=== PATIENT | male | born 1965 | race African-American/Black ===

== ENCOUNTER 2017-09-13 15:50 | Inpatient (IN) | payer OTHER ==
[~2017-09-13] VITALS: Ht 185.4 cm; Wt 102.3 kg
[2017-09-13 15:59] VITALS: Ht 185.4 cm; Wt 102.3 kg
[2017-09-13 17:53] LABS: microscopic required? NO
[2017-09-13 17:59] LABS: BASOPHIL % 0.6 % (0-2); PLATELET COUNT 202 x10^3mcL (130-400); RED CELL DISTRIBUTION WIDTH 13.6 % (11.5-14.5)
[2017-09-13 17:59] LABS: UA SPECIFIC GRAVITY 1.025 (1.005-1.035); urine erythrocyte NEGATIVE (NEGATIVE)
[2017-09-13 18:11] LABS: CARBON DIOXIDE 30.8 mmol/L (21-32); CHLORIDE SERUM 106 mmol/L (98-107); CREATININE SERUM 1.3 mg/dL (0.7-1.3); GFR1 > 60 mL/min; GLUCOSE SERUM 96 mg/dL (74-106); POTASSIUM SERUM 3.8 mmol/L (3.5-5.1); SODIUM SERUM 140 mmol/L (136-145)
[2017-09-13 18:19] LABS: ALBUMIN 3.9 g/dL (3.4-5.0); ALKALINE PHOSPHATASE 106 U/L (46-116); ALT/SGPT 42 U/L (16-63); AMYLASE 99 U/L (25-115); AST/SGOT 26 U/L (15-37); BILIRUBIN TOTAL 0.27 mg/dL (0.20-1.00); LIPASE 108 IU/L (73-393); TOTAL PROTEIN, SERUM 7.1 g/dL (6.4-8.2)
[2017-09-13 20:45] VITALS: BP 122/84
[2017-09-13 20:51] LABS: MAGNESIUM 2.1 mg/dL (1.8-2.4); PHOSPHOROUS 3.4 mg/dL (2.5-4.9)
[2017-09-13 20:59] LABS: FREE T4 0.88 ng/dL (0.76-1.46); FREE THYROXINE INDEX 2.2 ug/dL (1.4-4.5); T4(THYROXINE) 6.3 ug/dL (4.7-13.3)
[2017-09-13 21:00] LABS: CHOLESTEROL/HDL RATIO 7.3
[2017-09-13 21:02] LABS: T3 TOTAL 1.12 ng/mL
[2017-09-13 22:14] LABS: AMPHETAMINE QUAL UR NONE DETECTED (See below)
[2017-09-14 06:26] VITALS: BP 109/82
[2017-09-14 07:15] LABS: CALCIUM 9.2 mg/dL (8.5-10.1); CARBON DIOXIDE 28.5 mmol/L (21-32); CHLORIDE SERUM 104 mmol/L (98-107); CREATININE SERUM 1.3 mg/dL (0.7-1.3); GFR1 > 60 mL/min; GLUCOSE SERUM 105 mg/dL (74-106); MAGNESIUM 2.2 mg/dL (1.8-2.4); PHOSPHOROUS 3.7 mg/dL (2.5-4.9); POTASSIUM SERUM 4.4 mmol/L (3.5-5.1); SODIUM SERUM 141 mmol/L (136-145)
[2017-09-14 07:35] LABS: BASOPHIL % 0.3 % (0-2); PLATELET COUNT 207 x10^3mcL (130-400); RED CELL DISTRIBUTION WIDTH 13.3 % (11.5-14.5)
[2017-09-14 08:42] VITALS: BP 108/79
[2017-09-14 17:01] VITALS: BP 126/78
[2017-09-14 22:06] VITALS: BP 119/78
[2017-09-15 06:04] VITALS: BP 124/79
[2017-09-15 06:50] LABS: CARBON DIOXIDE 29.1 mmol/L (21-32); CREATININE SERUM 1.5 mg/dL (0.7-1.3); MAGNESIUM 1.9 mg/dL (1.8-2.4); PHOSPHOROUS 3.5 mg/dL (2.5-4.9); POTASSIUM SERUM 3.8 mmol/L (3.5-5.1)
[2017-09-15 07:03] LABS: BASOPHIL % 0.5 % (0-2); PLATELET COUNT 180 x10^3mcL (130-400); RED CELL DISTRIBUTION WIDTH 13.3 % (11.5-14.5)
[2017-09-15 09:52] VITALS: BP 113/73
[2017-09-15 13:28] VITALS: BP 113/73
[2017-09-15] MEDS ORDERED: LEVAQUIN750 MG PO (16:48)
[2017-09-15] MEDS ORDERED: FLA500 PO (16:49)
[2017-09-15] MEDS ORDERED: LAC PO (16:50)
[2017-09-15 16:55] VITALS: BP 120/77
== END 2017-09-15 17:20 | disposition home or self-care (01) | DRG 391 ==
LOC: ED 15:50 → DU 19:47 → MU 09-14 08:10
PROVIDERS: Emergency Medicine; Family Medicine
DX: A09 Infectious gastroenteritis and colitis, unspecified (principal); N17.0 Acute kidney failure with tubular necrosis; J45.909 Unspecified asthma, uncomplicated; I10 Essential (primary) hypertension; E78.5 Hyperlipidemia, unspecified; M19.90 Unspecified osteoarthritis, unspecified site; Z68.30 Body mass index [BMI] 30.0-30.9, adult
CPT/HCPCS: 83880; 84439; J1885; J1956; J2270; J2405; J3490; J7030; J7120; Q0092; Q9967